=== PATIENT | female | born 1970 | race Caucasian/White ===

== ENCOUNTER → 2017-09-20 | Outpatient (CLI) | payer OTHER ==
[~2017-09-20] MED LIST: IBUPROFEN 200200 M1 OR; IMITREX 25 MG T25 MG OR; PROCARDIA XL60 MG; SUDAFED30 MG OR; TRAMADOL 50 MG50 MG OR
== END ==
LOC: M.RAD 11:23
DX: Z12.31 Encounter for screening mammogram for malignant neoplasm of breast (principal)

== ENCOUNTER → 2018-10-05 | Outpatient (CLI) | payer OTHER | LOC: M.RAD 14:15 | DX: Z12.31 Encounter for screening mammogram for malignant neoplasm of breast (principal) ==

== ENCOUNTER → 2019-06-30 | Outpatient (CLI) | payer OTHER | LOC: M.RAD 13:30 | DX: Z88.1 Allergy status to other antibiotic agents (principal); Z88.0 Allergy status to penicillin; Z88.2 Allergy status to sulfonamides ==

== ENCOUNTER → 2019-07-06 | Outpatient (CLI) | payer OTHER | LOC: M.ULTRA 13:30 | DX: N63.10 Unspecified lump in the right breast, unspecified quadrant (principal); N63.20 Unspecified lump in the left breast, unspecified quadrant ==

== ENCOUNTER → 2020-07-09 | Outpatient (CLI) | payer OTHER | LOC: M.RAD 14:30 | PROVIDERS: ATTEND Obstetrics & Gynecology Gynecology | DX: Z12.31 Encounter for screening mammogram for malignant neoplasm of breast (principal) ==

== ENCOUNTER → 2021-07-30 | Outpatient (CLI) | payer OTHER | LOC: M.RAD 10:56 | PROVIDERS: ATTEND Obstetrics & Gynecology Gynecology | DX: Z12.31 Encounter for screening mammogram for malignant neoplasm of breast (principal) ==